=== PATIENT | male | born 1935 | race Caucasian/White ===

== ENCOUNTER 2022-02-11 18:09 | Emergency (ER) | payer OTHER ==
[~2022-02-11] VITALS: Ht 154.9 cm; Wt 55.8 kg
[2022-02-11 18:09] VITALS: BP_SYST 205
[2022-02-11] MEDS ORDERED: cloNIDine HCL 0.1 MG TABLET PO ONE (19:00)
[2022-02-11 19:04] LABS: BASOPHILS # (AUTO) 0.1 K/uL (0.0-0.2); EOSINOPHILS # (AUTO) 0.4 K/uL (0.0-0.4); EOSINOPHILS % (AUTO) 13.3 % (0.0-4.0); HEMATOCRIT 27.4 % (36-54); HEMOGLOBIN 9.3 g/dL (14.0-18.0); LYMPHOCYTES # (AUTO) 0.6 K/uL (1.0-5.5); LYMPHOCYTES % (AUTO) 18.6 % (20.5-51.5); MEAN CORPUSCULAR HEMOGLOBIN 32 pg (27-31); MEAN CORPUSCULAR HGB CONC 34 % (32-36); MEAN CORPUSCULAR VOLUME 94 fL (79.0-98.0); MONOCYTES # (AUTO) 0.5 K/uL (0.0-1.0); MONOCYTES % (AUTO) 15.2 % (1.7-9.3); NEUTROPHILS # (AUTO) 1.6 K/uL (1.8-7.7); NEUTROPHILS % (AUTO) 48.9 % (40.0-70.0); RED CELL DISTRIBUTION WIDTH 16.4 % (9.0-15.0); WHITE BLOOD COUNT (AUTO) 3.3 K/uL (4.8-10.8)
[2022-02-11 19:09] LABS: ANION GAP 14 (5-15); CALCIUM 8.3 mg/dL (8.4-11.0); CHLORIDE 108 mmol/L (98-107); CREATININE 2.82 mg/dL (0.55-1.30); GLUCOSE 110 mg/dL (70-99); POTASSIUM 5.1 mmol/L (3.5-5.1); SODIUM SERUM 139 mmol/L (136-145); UREA NITROGEN, BLOOD 39 mg/dL (8-21)
[2022-02-11 19:18] LABS: ALANINE AMINOTRANSFERASE 16 U/L (12-78); ALBUMIN 3.2 g/dL (3.4-4.8); ASPARTATE AMINOTRANSFERASE 16 U/L (10-37); TOTAL BILIRUBIN 0.6 mg/dL (0.0-1.0)
[2022-02-11 19:19] LABS: PLATELET COUNT (AUTO) 153 K/uL (130-430)
[2022-02-11] MEDS ORDERED: ALBUTEROL SULFATE 0.083% 2.5 MG/3 ML VIAL.NEB INH ONE (19:45)
[2022-02-11] MEDS ORDERED: IPRATROPIUM BROM 0.5 MG/2.5 ML VIAL.NEB (ATROVENT) INH ONE (19:45)
[2022-02-11] MEDS ORDERED: D5/0.45 NS 1,000 ML IV ONE (20:45)
[2022-02-11 20:50] VITALS: BP_SYST 160
[2022-02-11] MEDS ORDERED: NAPR-690 PO (20:58)
[2022-02-11] MEDS ORDERED: FERR-31 PO (20:58)
[2022-02-11] MEDS ORDERED: HYDR-4039 PO (20:58)
[2022-02-11] MEDS ORDERED: LEVO25CA4 PO (20:58)
== END 2022-02-11 21:12 | disposition left against medical advice (07) ==
LOC: SED 18:09
DX: J18.9 Pneumonia, unspecified organism (principal); R09.02 Hypoxemia; R06.02 Shortness of breath; J44.9 Chronic obstructive pulmonary disease, unspecified; I10 Essential (primary) hypertension; Z79.899 Other long term (current) drug therapy; Z87.891 Personal history of nicotine dependence; Z20.822 Contact with and (suspected) exposure to COVID-19
CPT/HCPCS: 80053; 83880; 85025; 87040; 84484; 36415; 93005; 71045; 94640; 99285; 83605; 87426; J7613

== ENCOUNTER 2022-02-12 12:23 | Inpatient (IN) | payer OTHER ==
[~2022-02-12] VITALS: Ht 154.9 cm; Wt 52.2 kg
[~2022-02-12 12:23] MED LIST: FERR-31 PO; HYDR-4039 PO; LEVO25CA4 PO; NAPR-690 PO
[2022-02-12 12:28] VITALS: BP_SYST 170
[2022-02-12] MEDS ORDERED: cloNIDine HCL 0.1 MG TABLET PO ONE (13:30)
[2022-02-12 13:31] LABS: BASOPHILS # (AUTO) 0.1 K/uL (0.0-0.2); BASOPHILS % (AUTO) 3.1 % (0.0-2.0); EOSINOPHILS # (AUTO) 0.3 K/uL (0.0-0.4); EOSINOPHILS % (AUTO) 11.4 % (0.0-4.0); HEMATOCRIT 25.4 % (36-54); HEMOGLOBIN 8.6 g/dL (14.0-18.0); LYMPHOCYTES # (AUTO) 0.4 K/uL (1.0-5.5); LYMPHOCYTES % (AUTO) 17.6 % (20.5-51.5); MEAN CORPUSCULAR HEMOGLOBIN 32 pg (27-31); MEAN CORPUSCULAR HGB CONC 34 % (32-36); MEAN CORPUSCULAR VOLUME 94 fL (79.0-98.0); MONOCYTES # (AUTO) 0.4 K/uL (0.0-1.0); MONOCYTES % (AUTO) 18.5 % (1.7-9.3); NEUTROPHILS # (AUTO) 1.2 K/uL (1.8-7.7); NEUTROPHILS % (AUTO) 49.4 % (40.0-70.0); PLATELET COUNT (AUTO) 125 K/uL (130-430); RED CELL DISTRIBUTION WIDTH 16.3 % (9.0-15.0)
[2022-02-12 13:35] LABS: WHITE BLOOD COUNT (AUTO) 2.4 K/uL (4.8-10.8)
[2022-02-12 14:10] LABS: ANION GAP 16 (5-15); CHLORIDE 109 mmol/L (98-107); GLUCOSE 124 mg/dL (70-99); POTASSIUM 5.3 mmol/L (3.5-5.1); SODIUM SERUM 139 mmol/L (136-145)
[2022-02-12 14:11] LABS: ALANINE AMINOTRANSFERASE 14 U/L (12-78); ALBUMIN 3.3 g/dL (3.4-4.8); ASPARTATE AMINOTRANSFERASE 15 U/L (10-37); CALCIUM 8.8 mg/dL (8.4-11.0); CREATININE 2.92 mg/dL (0.55-1.30); TOTAL BILIRUBIN 0.7 mg/dL (0.0-1.0); UREA NITROGEN, BLOOD 42 mg/dL (8-21)
[2022-02-12] MEDS ORDERED: ASPIRIN 81 MG TAB.CHEW PO ONE (16:15)
[2022-02-12 17:51] VITALS: BP_SYST 152
[2022-02-12 20:35] VITALS: BP_SYST 159
[2022-02-13 00:32] VITALS: BP_SYST 162
[2022-02-13] MEDS ORDERED: cefTRIAXone 1 GM VIAL ONE (00:50)
[2022-02-13] MEDS: DOXYCYCLINE HYCLATE 100 MG CAPSULE PO SCH ×3 (02:02→21:25)
[2022-02-13] MEDS: cefTRIAXone 1 GM in D5W 50 ML IV SCH (02:02)
[2022-02-13 07:02] LABS: ALANINE AMINOTRANSFERASE 10 U/L (12-78); ALBUMIN 2.8 g/dL (3.4-4.8); ANION GAP 13 (5-15); ASPARTATE AMINOTRANSFERASE 13 U/L (10-37); CHLORIDE 109 mmol/L (98-107); CREATININE 3.07 mg/dL (0.55-1.30); GLUCOSE 93 mg/dL (70-99); POTASSIUM 5.6 mmol/L (3.5-5.1); SODIUM SERUM 142 mmol/L (136-145); TOTAL BILIRUBIN 0.3 mg/dL (0.0-1.0); UREA NITROGEN, BLOOD 46 mg/dL (8-21)
[2022-02-13 07:44] LABS: BASOPHILS # (AUTO) 0.1 K/uL (0.0-0.2); EOSINOPHILS # (AUTO) 0.5 K/uL (0.0-0.4); HEMATOCRIT 24.2 % (36-54); HEMOGLOBIN 8.1 g/dL (14.0-18.0); LYMPHOCYTES # (AUTO) 0.5 K/uL (1.0-5.5); LYMPHOCYTES % (AUTO) 22.5 % (20.5-51.5); MEAN CORPUSCULAR HEMOGLOBIN 32 pg (27-31); MEAN CORPUSCULAR HGB CONC 33 % (32-36); MEAN CORPUSCULAR VOLUME 96 fL (79.0-98.0); MONOCYTES # (AUTO) 0.4 K/uL (0.0-1.0); MONOCYTES % (AUTO) 15.9 % (1.7-9.3); PLATELET COUNT (AUTO) 111 K/uL (130-430); RED BLOOD CELL COUNT(AUTO) 2.54 MIL/uL (4.2-6.2); RED CELL DISTRIBUTION WIDTH 16.4 % (9.0-15.0); WHITE BLOOD COUNT (AUTO) 2.4 K/uL (4.8-10.8)
[2022-02-13 08:35] LABS: NEUTROPHILS # (AUTO) 0.9 K/uL (1.8-7.7)
[2022-02-13] MEDS ORDERED: HYDROcodone/ACETAMIN 5-325 MG TAB (NORCO/ VICODIN) PO PRN (09:15)
[2022-02-13] MEDS ORDERED: LORazepam 2 MG/ML VIAL IVP PRN (09:15)
[2022-02-13] MEDS ORDERED: ONDANSETRON HCL 4 MG/2 ML VIAL IVP PRN (09:15)
[2022-02-13] MEDS ORDERED: IPRATROPIUM BROM 0.5 MG/2.5 ML VIAL.NEB (ATROVENT) INH PRN (09:15)
[2022-02-13] MEDS ORDERED: AZITHROMYCIN 500 MG in NS 250 ML IV SCH (09:15)
[2022-02-13] MEDS ORDERED: NALOXONE HCL 0.4 MG/ML AMP (NARCAN) IVP PRN ×2 (09:15)
[2022-02-13] MEDS ORDERED: ALBUTEROL SULFATE 0.083% 2.5 MG/3 ML VIAL.NEB INH PRN (09:15)
[2022-02-13] MEDS ORDERED: HYDROcodone/ACETAMIN 10-325 MG TAB PO PRN (09:15)
[2022-02-13] MEDS ORDERED: ACETAMINOPHEN 325 MG TABLET PO PRN (09:15)
[2022-02-13] MEDS ORDERED: cefTRIAXone 1 GM IVPB PREMIX 50 ML IV SCH (09:15)
[2022-02-13] MEDS: PANTOPRAZOLE SODIUM 40 MG/VIAL (PROTONIX) IVP SCH (09:23)
[2022-02-13] MEDS: D5/0.45 NS 1,000 ML IV SCH (09:31)
[2022-02-13] MEDS ORDERED: SODIUM ZIRCONIUM CYCLOSILICATE 10 GM POWD.PACK PO ONE (12:00)
[2022-02-13] MEDS ORDERED: FUROSEMIDE 40 MG/4 ML VIAL IVP ONE (12:00)
[2022-02-13 12:07] VITALS: BP_SYST 162
[2022-02-13 13:52] LABS: NEUTROPHILS % (AUTO) 36.6 % (40.0-70.0)
[2022-02-13] MEDS: hydrALAZINE HCL 25 MG TABLET PO SCH ×2 (14:40→21:31)
[2022-02-13 19:50] LABS: BILIRUBIN,URINE NEGATIVE (NEGATIVE); BLOOD, URINE NEGATIVE (NEGATIVE); CLARITY/URINE CLEAR (CLEAR); COLOR,URINE YELLOW (YELLOW); GLUCOSE,URINE NEGATIVE (NEGATIVE); KETONES,URINE NEGATIVE (NEGATIVE); LEUKOCYTE ESTERASE ,URINE NEGATIVE (NEGATIVE); NITRITE, URINE NEGATIVE (NEGATIVE); PH,URINE 5.5 (5.0-8.0); PROTEIN URINE NEGATIVE (NEGATIVE); UROBILINOGEN,URINE 0.2 (0.2-1.0)
[2022-02-13 20:11] VITALS: BP_SYST 208
[2022-02-14] MEDS: cefTRIAXone 1 GM in D5W 50 ML IV SCH ×2 (00:05→23:47)
[2022-02-14 00:11] VITALS: BP_SYST 132
[2022-02-14 06:41] LABS: GLUCOSE 105 mg/dL (70-99); PHOSPHORUS 4.6 mg/dL (2.7-4.5); POTASSIUM 5.2 mmol/L (3.5-5.1)
[2022-02-14] MEDS: LEVOTHYROXINE SODIUM 0.025 MG TABLET PO SCH (07:18)
[2022-02-14 07:45] LABS: ANION GAP 13 (5-15); C-REACTIVE PROTEIN QUANT 0.9 mg/dL (0-0.5); CALCIUM 8.7 mg/dL (8.4-11.0); CHLORIDE 107 mmol/L (98-107); CREATININE 3.06 mg/dL (0.55-1.30); SODIUM SERUM 137 mmol/L (136-145); UREA NITROGEN, BLOOD 52 mg/dL (8-21)
[2022-02-14 07:54] LABS: HEMATOCRIT 25.2 % (36-54); HEMOGLOBIN 8.5 g/dL (14.0-18.0); MEAN CORPUSCULAR HEMOGLOBIN 32 pg (27-31); MEAN CORPUSCULAR HGB CONC 34 % (32-36); MEAN CORPUSCULAR VOLUME 95 fL (79.0-98.0); PLATELET COUNT (AUTO) 121 K/uL (130-430); RED BLOOD CELL COUNT(AUTO) 2.65 MIL/uL (4.2-6.2); RED CELL DISTRIBUTION WIDTH 16.4 % (9.0-15.0); WHITE BLOOD COUNT (AUTO) 3.3 K/uL (4.8-10.8)
[2022-02-14 08:34] LABS: TOTAL IRON BIND. CAPACITY 162 ug/dL (250-450)
[2022-02-14 08:40] VITALS: BP_SYST 100; BP_SYST 121
[2022-02-14] MEDS ORDERED: SODIUM POLYSTYRENE SULFONATE 15 GM/60 ML UDBTL PO ONE (09:00)
[2022-02-14] MEDS: hydrALAZINE HCL 25 MG TABLET PO SCH ×3 (10:07→21:40)
[2022-02-14] MEDS: PANTOPRAZOLE SODIUM 40 MG/VIAL (PROTONIX) IVP SCH (10:07)
[2022-02-14] MEDS: DOXYCYCLINE HYCLATE 100 MG CAPSULE PO SCH ×2 (10:08→21:38)
[2022-02-14 10:18] LABS: ERYTHROCYTE SEDIMENTATION RATE 19 MM/HR (0-15)
[2022-02-14 10:44] LABS: BASOPHILS % (MANUAL) 0 % (0-2); EOSINOPHILS % (MANUAL) 24 % (0-7); LYMPHOCYTES % (MANUAL) 24 % (20-46); MONOCYTES % (MANUAL) 10 % (0-11)
[2022-02-14 11:07] LABS: HEPATITIS A AB, IgM Negative (Negative); HEPATITIS B CORE AB, IgM Negative (Negative); HEPATITIS B SURFACE AG Negative (Negative)
[2022-02-14] MEDS ORDERED: SODIUM BICARBONATE 650 MG TABLET PO ONE (11:30)
[2022-02-14] MEDS ORDERED: SODIUM ZIRCONIUM CYCLOSILICATE 10 GM POWD.PACK PO ONE (12:00)
[2022-02-14] MEDS: FERROUS SULFATE 325 MG TABLET.DR PO SCH (12:04)
[2022-02-14] MEDS: D5/0.45 NS 1,000 ML IV SCH (15:32)
[2022-02-14] MEDS: SODIUM BICARBONATE 650 MG TABLET PO SCH ×2 (16:28→21:38)
[2022-02-14 16:39] VITALS: BP_SYST 180
[2022-02-14 21:03] VITALS: BP_SYST 184
[2022-02-15 00:11] VITALS: BP_SYST 185
[2022-02-15] MEDS: D5/0.45 NS 1,000 ML IV SCH ×2 (01:41→21:53)
[2022-02-15 04:30] LABS: BILIRUBIN,URINE NEGATIVE (NEGATIVE); BLOOD, URINE NEGATIVE (NEGATIVE); CLARITY/URINE CLEAR (CLEAR); COLOR,URINE YELLOW (YELLOW); GLUCOSE,URINE NEGATIVE (NEGATIVE); KETONES,URINE NEGATIVE (NEGATIVE); LEUKOCYTE ESTERASE ,URINE NEGATIVE (NEGATIVE); NITRITE, URINE NEGATIVE (NEGATIVE); PH,URINE 5.5 (5.0-8.0); PROTEIN URINE TRACE (NEGATIVE); UROBILINOGEN,URINE 0.2 (0.2-1.0)
[2022-02-15] MEDS: LEVOTHYROXINE SODIUM 0.025 MG TABLET PO SCH (06:55)
[2022-02-15 07:30] LABS: ALANINE AMINOTRANSFERASE 9 U/L (12-78); ALBUMIN 2.7 g/dL (3.4-4.8); ANION GAP 10 (5-15); ASPARTATE AMINOTRANSFERASE 9 U/L (10-37); CALCIUM 7.9 mg/dL (8.4-11.0); CHLORIDE 110 mmol/L (98-107); CREATININE 2.75 mg/dL (0.55-1.30); GLUCOSE 99 mg/dL (70-99); PHOSPHORUS 4.3 mg/dL (2.7-4.5); POTASSIUM 4.3 mmol/L (3.5-5.1); SODIUM SERUM 142 mmol/L (136-145); TOTAL BILIRUBIN 0.2 mg/dL (0.0-1.0); UREA NITROGEN, BLOOD 44 mg/dL (8-21)
[2022-02-15 07:33] LABS: TOTAL IRON BIND. CAPACITY 156 ug/dL (250-450)
[2022-02-15 07:50] LABS: HEMATOCRIT 23.9 % (36-54); HEMOGLOBIN 8.1 g/dL (14.0-18.0); MEAN CORPUSCULAR HEMOGLOBIN 32 pg (27-31); MEAN CORPUSCULAR HGB CONC 34 % (32-36); MEAN CORPUSCULAR VOLUME 94 fL (79.0-98.0); PLATELET COUNT (AUTO) 131 K/uL (130-430); RED BLOOD CELL COUNT(AUTO) 2.54 MIL/uL (4.2-6.2); RED CELL DISTRIBUTION WIDTH 15.8 % (9.0-15.0); RETICULOCYTE COUNT 1.2 % (0.5-1.5); WHITE BLOOD COUNT (AUTO) 2.7 K/uL (4.8-10.8)
[2022-02-15 08:24] VITALS: BP_SYST 180
[2022-02-15] MEDS: PANTOPRAZOLE SODIUM 40 MG/VIAL (PROTONIX) IVP SCH (08:45)
[2022-02-15] MEDS: hydrALAZINE HCL 25 MG TABLET PO SCH ×3 (08:45→21:49)
[2022-02-15] MEDS: DOXYCYCLINE HYCLATE 100 MG CAPSULE PO SCH ×2 (08:45→21:49)
[2022-02-15] MEDS: SODIUM BICARBONATE 650 MG TABLET PO SCH ×3 (08:45→21:49)
[2022-02-15 09:13] LABS: C-REACTIVE PROTEIN QUANT < 0.2 mg/dL (0-0.5)
[2022-02-15] MEDS ORDERED: NIFEdipine 30 MG TAB.ER.24 PO ONE (10:30)
[2022-02-15] MEDS: FERROUS SULFATE 325 MG TABLET.DR PO SCH (11:31)
[2022-02-15 12:00] VITALS: BP_SYST 184
[2022-02-15] MEDS ORDERED: LABETALOL HCL 20 MG/4 ML CARTRIDGE IVP PRN (13:00)
[2022-02-15 13:18] LABS: ATYPICAL LYMPHOCYTES % 0 % (0-0); BAND % (MANUAL) 0 % (0-6); BASOPHILS % (MANUAL) 0 % (0-2); EOSINOPHILS % (MANUAL) 19 % (0-7); LYMPHOCYTES % (MANUAL) 20 % (20-46); MONOCYTES % (MANUAL) 20 % (0-11)
[2022-02-15 14:05] LABS: ERYTHROCYTE SEDIMENTATION RATE 18 MM/HR (0-15)
[2022-02-15 16:56] VITALS: BP_SYST 160
[2022-02-15 20:04] VITALS: BP_SYST 181
[2022-02-16] VITALS (8 sets, daily range): BP systolic 147–181
[2022-02-16] MEDS: cefTRIAXone 1 GM in D5W 50 ML IV SCH ×2 (00:36→23:48)
[2022-02-16] MEDS: LEVOTHYROXINE SODIUM 0.025 MG TABLET PO SCH (06:43)
[2022-02-16 07:07] LABS: FOLATE (FOLIC ACID) 5.1 ng/mL (>3.0)
[2022-02-16 07:07] LABS: % FREE PSA 34.1 % (.); FREE PSA 0.75 ng/mL; PROSTATE SPECIFIC AG TOTAL 2.2 ng/mL (0.0-4.0)
[2022-02-16 07:23] LABS: HEMATOCRIT 24.1 % (36-54); HEMOGLOBIN 8.4 g/dL (14.0-18.0); MEAN CORPUSCULAR HEMOGLOBIN 33 pg (27-31); MEAN CORPUSCULAR HGB CONC 35 % (32-36); MEAN CORPUSCULAR VOLUME 94 fL (79.0-98.0); PLATELET COUNT (AUTO) 131 K/uL (130-430); RED BLOOD CELL COUNT(AUTO) 2.56 MIL/uL (4.2-6.2); RED CELL DISTRIBUTION WIDTH 15.7 % (9.0-15.0)
[2022-02-16 08:16] LABS: ANION GAP 14 (5-15); CALCIUM 7.8 mg/dL (8.4-11.0); CHLORIDE 107 mmol/L (98-107); GLUCOSE 103 mg/dL (70-99); PHOSPHORUS 5.6 mg/dL (2.7-4.5); SODIUM SERUM 140 mmol/L (136-145); UREA NITROGEN, BLOOD 48 mg/dL (8-21)
[2022-02-16 08:24] LABS: C-REACTIVE PROTEIN QUANT < 0.2 mg/dL (0-0.5)
[2022-02-16] MEDS: DOXYCYCLINE HYCLATE 100 MG CAPSULE PO SCH ×2 (08:47→21:44)
[2022-02-16] MEDS: PANTOPRAZOLE SODIUM 40 MG/VIAL (PROTONIX) IVP SCH (08:47)
[2022-02-16] MEDS: SODIUM BICARBONATE 650 MG TABLET PO SCH ×3 (08:47→21:44)
[2022-02-16] MEDS: hydrALAZINE HCL 25 MG TABLET PO SCH ×3 (08:48→21:48)
[2022-02-16] MEDS ORDERED: NIFEdipine 30 MG TAB.ER.24 PO SCH (09:00)
[2022-02-16] MEDS: FERROUS SULFATE 325 MG TABLET.DR PO SCH (12:22)
[2022-02-16 12:26] LABS: ERYTHROCYTE SEDIMENTATION RATE 16 MM/HR (0-15)
[2022-02-16 16:02] LABS: BASOPHILS % (MANUAL) 0 % (0-2); EOSINOPHILS % (MANUAL) 27 % (0-7); LYMPHOCYTES % (MANUAL) 17 % (20-46); MONOCYTES % (MANUAL) 19 % (0-11)
[2022-02-16] MEDS: D5/0.45 NS 1,000 ML IV SCH (16:10)
[2022-02-17] MEDS: LEVOTHYROXINE SODIUM 0.025 MG TABLET PO SCH (07:22)
[2022-02-17 08:28] LABS: HEMATOCRIT 23.2 % (36-54); HEMOGLOBIN 7.8 g/dL (14.0-18.0); MEAN CORPUSCULAR HEMOGLOBIN 32 pg (27-31); MEAN CORPUSCULAR HGB CONC 34 % (32-36); MEAN CORPUSCULAR VOLUME 95 fL (79.0-98.0); PLATELET COUNT (AUTO) 124 K/uL (130-430); RED BLOOD CELL COUNT(AUTO) 2.45 MIL/uL (4.2-6.2); RED CELL DISTRIBUTION WIDTH 15.7 % (9.0-15.0); WHITE BLOOD COUNT (AUTO) 3.4 K/uL (4.8-10.8)
[2022-02-17 09:00] VITALS: BP_SYST 167
[2022-02-17] MEDS: PANTOPRAZOLE SODIUM 40 MG/VIAL (PROTONIX) IVP SCH (09:20)
[2022-02-17] MEDS: DOXYCYCLINE HYCLATE 100 MG CAPSULE PO SCH ×2 (09:20→21:22)
[2022-02-17] MEDS: SODIUM BICARBONATE 650 MG TABLET PO SCH ×3 (09:20→21:21)
[2022-02-17] MEDS: NIFEdipine 30 MG TAB.ER.24 PO SCH (09:21)
[2022-02-17] MEDS: hydrALAZINE HCL 25 MG TABLET PO SCH ×3 (09:22→21:22)
[2022-02-17 12:00] VITALS: BP_SYST 163
[2022-02-17 12:16] LABS: ERYTHROCYTE SEDIMENTATION RATE 17 MM/HR (0-15)
[2022-02-17] MEDS: FERROUS SULFATE 325 MG TABLET.DR PO SCH (13:02)
[2022-02-17 13:05] LABS: ALANINE AMINOTRANSFERASE 9 U/L (12-78); ANION GAP 13 (5-15); ASPARTATE AMINOTRANSFERASE 14 U/L (10-37); CALCIUM 7.9 mg/dL (8.4-11.0); CHLORIDE 105 mmol/L (98-107); CREATININE 4.58 mg/dL (0.55-1.30); GLUCOSE 93 mg/dL (70-99); POTASSIUM 4.2 mmol/L (3.5-5.1); SODIUM SERUM 137 mmol/L (136-145); TOTAL BILIRUBIN 0.3 mg/dL (0.0-1.0); UREA NITROGEN, BLOOD 49 mg/dL (8-21)
[2022-02-17 13:06] LABS: ALBUMIN 2.7 g/dL (3.4-4.8); C-REACTIVE PROTEIN QUANT < 0.2 mg/dL (0-0.5)
[2022-02-17 13:21] LABS: URIC ACID 9.8 mg/dL (2.4-7.0)
[2022-02-17 14:10] LABS: BAND % (MANUAL) 2 % (0-6); BASOPHILS % (MANUAL) 0 % (0-2); EOSINOPHILS % (MANUAL) 19 % (0-7); LYMPHOCYTES % (MANUAL) 17 % (20-46); MONOCYTES % (MANUAL) 13 % (0-11)
[2022-02-17 15:42] VITALS: BP_SYST 154
[2022-02-17] MEDS: NACL 0.9% 1,000 ML IV SCH (15:46)
[2022-02-17 20:00] VITALS: BP_SYST 146
[2022-02-17] MEDS: cefTRIAXone 1 GM in D5W 50 ML IV SCH (23:28)
[2022-02-18 04:00] VITALS: BP_SYST 158
[2022-02-18] MEDS ORDERED: LEVOFLOXACIN 250 MG/D5W 50 ML IV ONE (05:59)
[2022-02-18] MEDS: LEVOFLOXACIN 250 MG/D5W 50 ML IV SCH (06:06)
[2022-02-18] MEDS: LEVOTHYROXINE SODIUM 0.025 MG TABLET PO SCH (06:35)
[2022-02-18 08:00] VITALS: BP_SYST 126
[2022-02-18 08:12] LABS: ANION GAP 13 (5-15); C-REACTIVE PROTEIN QUANT 0.9 mg/dL (0-0.5); CALCIUM 7.7 mg/dL (8.4-11.0); CHLORIDE 105 mmol/L (98-107); CREATININE 4.71 mg/dL (0.55-1.30); GLUCOSE 100 mg/dL (70-99); PHOSPHORUS 6.6 mg/dL (2.7-4.5); POTASSIUM 3.8 mmol/L (3.5-5.1); SODIUM SERUM 137 mmol/L (136-145); UREA NITROGEN, BLOOD 55 mg/dL (8-21)
[2022-02-18 08:41] LABS: HEMATOCRIT 24.4 % (36-54); HEMOGLOBIN 8.2 g/dL (14.0-18.0); LYMPHOCYTES # (AUTO) 0.3 K/uL (1.0-5.5); LYMPHOCYTES % (AUTO) 11.7 % (20.5-51.5); MEAN CORPUSCULAR HEMOGLOBIN 32 pg (27-31); MEAN CORPUSCULAR HGB CONC 34 % (32-36); MEAN CORPUSCULAR VOLUME 95 fL (79.0-98.0); MONOCYTES # (AUTO) 0.5 K/uL (0.0-1.0); MONOCYTES % (AUTO) 18.2 % (1.7-9.3); NEUTROPHILS # (AUTO) 1.5 K/uL (1.8-7.7); NEUTROPHILS % (AUTO) 53.3 % (40.0-70.0); PLATELET COUNT (AUTO) 113 K/uL (130-430); RED BLOOD CELL COUNT(AUTO) 2.57 MIL/uL (4.2-6.2); RED CELL DISTRIBUTION WIDTH 15.9 % (9.0-15.0); WHITE BLOOD COUNT (AUTO) 2.8 K/uL (4.8-10.8)
[2022-02-18] MEDS: hydrALAZINE HCL 25 MG TABLET PO SCH ×3 (08:52→21:27)
[2022-02-18] MEDS: SODIUM BICARBONATE 650 MG TABLET PO SCH ×3 (08:52→21:27)
[2022-02-18] MEDS: NIFEdipine 30 MG TAB.ER.24 PO SCH (08:52)
[2022-02-18] MEDS: DOXYCYCLINE HYCLATE 100 MG CAPSULE PO SCH ×2 (08:52→21:27)
[2022-02-18 09:32] LABS: BASOPHILS % (AUTO) 0.6 % (0.0-2.0); EOSINOPHILS % (AUTO) 16.2 % (0.0-4.0)
[2022-02-18 09:33] LABS: EOSINOPHILS # (AUTO) 0.4 K/uL (0.0-0.4)
[2022-02-18 12:00] VITALS: BP_SYST 128
[2022-02-18] MEDS: FERROUS SULFATE 325 MG TABLET.DR PO SCH (12:00)
[2022-02-18 12:22] LABS: ERYTHROCYTE SEDIMENTATION RATE 22 MM/HR (0-15)
[2022-02-18] MEDS: NACL 0.9% 1,000 ML IV SCH (13:44)
[2022-02-18 16:00] VITALS: BP_SYST 121
[2022-02-18 20:20] VITALS: BP_SYST 152
[2022-02-19 00:32] VITALS: BP_SYST 126
[2022-02-19] MEDS: LEVOTHYROXINE SODIUM 0.025 MG TABLET PO SCH (06:44)
[2022-02-19 08:00] VITALS: BP_SYST 183
[2022-02-19 08:15] VITALS: BP_SYST 126
[2022-02-19 08:35] LABS: HEMATOCRIT 24.4 % (36-54); HEMOGLOBIN 8.2 g/dL (14.0-18.0); LYMPHOCYTES # (AUTO) 0.4 K/uL (1.0-5.5); LYMPHOCYTES % (AUTO) 16.1 % (20.5-51.5); MEAN CORPUSCULAR HEMOGLOBIN 32 pg (27-31); MEAN CORPUSCULAR HGB CONC 34 % (32-36); MEAN CORPUSCULAR VOLUME 94 fL (79.0-98.0); MONOCYTES # (AUTO) 0.5 K/uL (0.0-1.0); MONOCYTES % (AUTO) 22.5 % (1.7-9.3); NEUTROPHILS % (AUTO) 42.6 % (40.0-70.0); PLATELET COUNT (AUTO) 103 K/uL (130-430); RED BLOOD CELL COUNT(AUTO) 2.58 MIL/uL (4.2-6.2); RED CELL DISTRIBUTION WIDTH 15.8 % (9.0-15.0); WHITE BLOOD COUNT (AUTO) 2.3 K/uL (4.8-10.8)
[2022-02-19] MEDS: hydrALAZINE HCL 25 MG TABLET PO SCH ×3 (09:00→21:40)
[2022-02-19] MEDS: SODIUM BICARBONATE 650 MG TABLET PO SCH ×3 (09:00→21:39)
[2022-02-19] MEDS: NIFEdipine 30 MG TAB.ER.24 PO SCH (09:00)
[2022-02-19] MEDS: DOXYCYCLINE HYCLATE 100 MG CAPSULE PO SCH ×2 (09:00→21:39)
[2022-02-19 09:12] LABS: C-REACTIVE PROTEIN QUANT 2.6 mg/dL (0-0.5); CALCIUM 7.9 mg/dL (8.4-11.0); CHLORIDE 105 mmol/L (98-107); CREATININE 4.68 mg/dL (0.55-1.30); GLUCOSE 93 mg/dL (70-99); PHOSPHORUS 7.2 mg/dL (2.7-4.5); POTASSIUM 4.2 mmol/L (3.5-5.1); SODIUM SERUM 138 mmol/L (136-145); UREA NITROGEN, BLOOD 67 mg/dL (8-21)
[2022-02-19 09:29] LABS: EOSINOPHILS # (AUTO) 0.4 K/uL (0.0-0.4); EOSINOPHILS % (AUTO) 18.8 % (0.0-4.0)
[2022-02-19 09:44] LABS: ANION GAP 15 (5-15)
[2022-02-19 10:50] LABS: ERYTHROCYTE SEDIMENTATION RATE 23 MM/HR (0-15)
[2022-02-19 12:00] VITALS: BP_SYST 187
[2022-02-19] MEDS: CALCIUM ACETATE 667 MG CAP PO SCH ×2 (12:51→17:29)
[2022-02-19] MEDS: FERROUS SULFATE 325 MG TABLET.DR PO SCH (12:51)
[2022-02-19] MEDS: NACL 0.9% 1,000 ML IV SCH (13:30)
[2022-02-19 16:00] VITALS: BP_SYST 152
[2022-02-19 20:30] VITALS: BP_SYST 150
[2022-02-20 00:10] VITALS: BP_SYST 143
[2022-02-20] MEDS: LEVOFLOXACIN 250 MG/D5W 50 ML IV SCH (04:58)
[2022-02-20] MEDS: LEVOTHYROXINE SODIUM 0.025 MG TABLET PO SCH (06:35)
[2022-02-20 08:30] VITALS: BP_SYST 134
[2022-02-20 09:08] LABS: ALANINE AMINOTRANSFERASE 11 U/L (12-78); ALBUMIN 2.7 g/dL (3.4-4.8); ANION GAP 14 (5-15); ASPARTATE AMINOTRANSFERASE 11 U/L (10-37); C-REACTIVE PROTEIN QUANT 2.7 mg/dL (0-0.5); CALCIUM 7.9 mg/dL (8.4-11.0); CHLORIDE 110 mmol/L (98-107); CREATININE 4.66 mg/dL (0.55-1.30); GLUCOSE 95 mg/dL (70-99); PHOSPHORUS 7.8 mg/dL (2.7-4.5); POTASSIUM 4.5 mmol/L (3.5-5.1); SODIUM SERUM 144 mmol/L (136-145); TOTAL BILIRUBIN 0.3 mg/dL (0.0-1.0); UREA NITROGEN, BLOOD 74 mg/dL (8-21)
[2022-02-20] MEDS: NIFEdipine 30 MG TAB.ER.24 PO SCH (09:18)
[2022-02-20] MEDS: CALCIUM ACETATE 667 MG CAP PO SCH ×3 (09:18→18:31)
[2022-02-20] MEDS: hydrALAZINE HCL 25 MG TABLET PO SCH ×3 (09:19→21:39)
[2022-02-20] MEDS: SODIUM BICARBONATE 650 MG TABLET PO SCH ×3 (09:19→21:40)
[2022-02-20 09:31] LABS: HEMOGLOBIN 7.3 g/dL (14.0-18.0); MEAN CORPUSCULAR HEMOGLOBIN 32 pg (27-31); MEAN CORPUSCULAR HGB CONC 33 % (32-36); MEAN CORPUSCULAR VOLUME 96 fL (79.0-98.0); PLATELET COUNT (AUTO) 102 K/uL (130-430); RED BLOOD CELL COUNT(AUTO) 2.28 MIL/uL (4.2-6.2); RED CELL DISTRIBUTION WIDTH 16.2 % (9.0-15.0); WHITE BLOOD COUNT (AUTO) 2.4 K/uL (4.8-10.8)
[2022-02-20] MEDS ORDERED: SODI650T PO (09:47)
[2022-02-20] MEDS ORDERED: PHO667 PO (09:47)
[2022-02-20] MEDS ORDERED: NIFEdipine PO (09:47)
[2022-02-20 10:19] LABS: HEMATOCRIT 21.9 % (36-54)
[2022-02-20 12:05] VITALS: BP_SYST 130
[2022-02-20 12:13] LABS: ERYTHROCYTE SEDIMENTATION RATE 26 MM/HR (0-15)
[2022-02-20 14:12] LABS: BASOPHILS % (MANUAL) 0 % (0-2); EOSINOPHILS % (MANUAL) 22 % (0-7); LYMPHOCYTES % (MANUAL) 20 % (20-46); MONOCYTES % (MANUAL) 12 % (0-11)
[2022-02-20] MEDS: NACL 0.9% 1,000 ML IV SCH (16:08)
[2022-02-20] MEDS: FERROUS SULFATE 325 MG TABLET.DR PO SCH (16:08)
[2022-02-20 16:12] VITALS: BP_SYST 141
[2022-02-20 21:19] VITALS: BP_SYST 158
== END 2022-02-20 22:11 | DRG 871 ==
LOC: SED 12:23 → STU 15:23 → SMU 02-17 23:46
PROVIDERS: ADMIT Preventive Medicine Preventive Medicine/Occupational Environmental Medicine; ATTEND Preventive Medicine Preventive Medicine/Occupational Environmental Medicine
DX: A41.9 Sepsis, unspecified organism (principal); E43 Unspecified severe protein-calorie malnutrition; J18.9 Pneumonia, unspecified organism; J96.01 Acute respiratory failure with hypoxia; N17.9 Acute kidney failure, unspecified; D61.818 Other pancytopenia; E27.40 Unspecified adrenocortical insufficiency; I13.0 Hypertensive heart and chronic kidney disease with heart failure and stage 1 through stage 4 chronic kidney disease, or unspecified chronic kidney disease; J44.0 Chronic obstructive pulmonary disease with (acute) lower respiratory infection; J91.8 Pleural effusion in other conditions classified elsewhere; E03.9 Hypothyroidism, unspecified; E83.39 Other disorders of phosphorus metabolism; E83.51 Hypocalcemia; E83.52 Hypercalcemia; E88.09 Other disorders of plasma-protein metabolism, not elsewhere classified; I50.9 Heart failure, unspecified; K74.60 Unspecified cirrhosis of liver; N18.9 Chronic kidney disease, unspecified; E87.5 Hyperkalemia; Z20.822 Contact with and (suspected) exposure to COVID-19; D64.9 Anemia, unspecified; D69.6 Thrombocytopenia, unspecified; Z79.899 Other long term (current) drug therapy; Z68.21 Body mass index [BMI] 21.0-21.9, adult
CPT/HCPCS: 36415; 71045; 71250-TC; 76376; 76700-TC; 76770; 80048; 80053; 80074; 81003; 82272; 82550; 82570; 82607; 82728; 82746; 83540; 83550; 83605; 83735; 83880; 84100; 84153; 84302; 84484; 84540; 84550; 85007; 85025; 85027; 85044; 85651-TC; 86140; 87040; 87086; 93005; 93306; 97110-GP; 97112-GP; 97116-GP; 99285; C9113; G0378; J0696; J1956; J7060